=== PATIENT | male | born 1980 | race American Indian/Alaskan Native ===

== ENCOUNTER 2017-09-02 09:57 | Day surgery (SDC) | payer SELFPAY ==
[~2017-09-02 09:57] MED LIST: ANCEF/STERILE WATER 2 GM/20 ML IV NR
[2017-09-02] MEDS ORDERED: NACL 0.9% 1000 ML 1,000 ML ONE ×2 (11:19→16:52)
[2017-09-02] MEDS ORDERED: ROBINUL ONE (11:30)
[2017-09-02] MEDS ORDERED: ZOFRAN ONE (11:30)
[2017-09-02] MEDS ORDERED: NEO SYNEPHRINE/NS Syringe(OR USE) IV ONE (11:30)
[2017-09-02] MEDS ORDERED: DIPRIVAN 10 MG/ML IV ONE ×2 (11:31→13:02)
[2017-09-02] MEDS ORDERED: XYLOCAINE MPF 2% ONE (11:31)
[2017-09-02] MEDS ORDERED: DILAUDID ONE (13:34)
--- NOTE | 2017-09-02 14:42 | Anesthesia Consultation ---
Anesthesia Consult and Med Hx Date of service: 09/02/17 - Airway Anesthetic Teeth Evaluation: Good ROM Head & Neck: Adequate Mental/Hyoid Distance: Adequate Mallampati Class: Class I Intubation Access Assessment: Good - Pulmonary Exam CTA: Yes - Cardiac Exam Cardiac Exam: RRR - Pre-Operative Health Status ASA Pre-Surgery Classification: ASA1, ASA2 Proposed Anesthetic Plan: General - Pulmonary Hx Smoking: Yes (1 PPD X 6 YRS) Hx Sleep Apnea: No (DIDIER PRE SCREEN LOW RISK) - Cardiovascular System Hx Hypertension: No - Other Systems Hx Substance Use: Yes (OCC MARIJUANA) Hx Cancer: No
[2017-09-02] MEDS ORDERED: TORADOL IV PRN (14:43)
[2017-09-02] MEDS ORDERED: DILAUDID IV PRN (14:43)
--- NOTE | 2017-09-02 14:43 | Anesthesia Day of Surgery ---
Anesthesia Day of Surgery - Day of Surgery Patient Examined: Yes Patient H&P Reviewed: Yes Patient is NPO: Yes
[2017-09-02] MEDS ORDERED: NACL 0.9% IR ONE (14:51)
[2017-09-02] MEDS ORDERED: MARCAINE 0.5% INFILTRATI ONE (15:36)
[2017-09-02] MEDS ORDERED: DEMEROL ONE (16:14)
[2017-09-02] MEDS ORDERED: DEMEROL IV PRN (16:15)
--- NOTE | 2017-09-02 16:46 | Procedure Note ---
Date of procedure: 09/02/17 Pre-op diagnosis: 2 month old fracture-dislocation right Tarsometatarsal joint [ LisFranc } Post-op diagnosis: same Procedure: Open reduction internal fixation right midfoot joint Procedure The patient was brought to the operating room and placed on the OR table supine , following induction and intubation the patient's right lower extremity prepped and draped in usual sterile fashion. A timeout procedure done to Identified the patient and the correct operative site. the leg exsanguated and touriquet inflated to 300mm mercury. A dorsal incision made over the 1st tarsometatarsal joint and taken down sharply to subqu tissues care taken to identified neurovascular structures, these were retracted out of the operative field. Due to abundant scar tissue formation the the tarsometatarsal joints were carefully debrided and joint reapproximated using C-arm fluroscope, temporary K-wire fixation used to stabilize reduction. Next a second dorsal incision made to lateral column, again taken down to the calcaneocuboid joint, the joint appeard subluxed and multiple attempts at reduction and small oscillating saw used to shortened lateral column. Next transfixing screws from medial cuneiform to the second metatarsal used as well as screw fixation the 1st metatarsal/cuneiform. AP and lateral viewed obtained show correction and good placement to the hardware. The copiously irrigated and closed in standard fashion, post op dressing applied as well as well padded posterior mold, there were no complications and sent to PACU in stable condition
[2017-09-02] MEDS ORDERED: PERCOCET 5/325 PO PRN (16:54)
[2017-09-02 18:11] VITALS: BP 136/84
--- NOTE | 2017-09-03 07:44 | XRay Report ---
RIGHT FOOT, ONE VIEW History: Lisfranc fracture right foot, intraoperative films. Findings: No comparison. 2 fluoroscopic images of the right foot were obtained during surgery which demonstrate internal fixation of a Lisfranc fracture with 3 orthopedic screws. Please correlate with the procedural notes as needed. Impression: Open reduction and internal fixation of a Lisfranc fracture in the right foot.
== END 2017-09-02 18:00 | disposition home or self-care (01) ==
LOC: OR 09:57
PROVIDERS: ATTEND Orthopaedic Surgery
DX: S93.326A Dislocation of tarsometatarsal joint of unspecified foot, initial encounter (principal); F17.210 Nicotine dependence, cigarettes, uncomplicated; X58.XXXA Exposure to other specified factors, initial encounter; Y93.89 Activity, other specified; Y92.89 Other specified places as the place of occurrence of the external cause; Y99.8 Other external cause status
CPT/HCPCS: 28615; 73620; C1713; J0690; J1170; J2175; J2370; J2405; J2704; J7030